=== PATIENT | male | born 1990 | race Caucasian/White ===

== ENCOUNTER 2019-02-12 15:37 | Emergency (ER) | payer SELFPAY ==
[2019-02-12 16:50] VITALS: BP 104/68
--- NOTE | 2019-02-12 17:23 | UC ---
Lower Extremity/Ankle HPI - HPI Summary HPI Summary: 28 year old male with no PMH presents with left psterior calf pain x 2 weeks. no swelling, no redness. patient woke up with pain, denies injury/ trauma. no prior occurence, no h/o blood clots/ bleeding disorders, no recent decreased movement, patient active. no SOB. no other complaints. pain worse with touch, movement, better with rest. tried ice and heat no coolness, numbness of leg/ foot - History of Current Complaint Chief Complaint: UCLowerExtremity Stated Complaint: LEFT LEG CALF PAIN X 2 WEEKS Time Seen by Provider: 02/12/19 16:55 Hx Obtained From: Patient Onset/Duration: Sudden Onset, Lasting Weeks - 2 Severity Initially: Mild Severity Currently: Mild Pain Intensity: 5 Pain Scale Used: 0-10 Numeric Aggravating Factor(s): Standing Alleviating Factor(s): Rest, Ice Able to Bear Weight: Yes - Allergies/Home Medications Allergies/Adverse Reactions: Allergies Allergy/AdvReac Type Severity Reaction Status Date / Time bee venom protein (honey bee) Allergy Severe Anaphylatic Verified 02/12/19 16:40 Shock cefaclor [From Ceclor] Allergy Severe Anaphylatic Verified 02/12/19 16:40 Shock latex Allergy Severe Airway Verified 02/12/19 16:40 Obstruction Penicillins Allergy Severe Airway Verified 02/12/19 16:40 Obstruction amoxicillin [From Augmentin] Allergy Unknown Hives Verified 02/12/19 16:40 clavulanic acid Allergy Unknown Hives Verified 02/12/19 16:40 [From Augmentin] SUPREX Allergy Intermediate Hives Uncoded 02/12/19 16:40 Home Medications: Home Medications Acetaminophen [Pain Relief Extra Strength] 1,000 mg PO PRN 02/12/19 [History] PMH/Surg Hx/FS Hx/Imm Hx Previously Healthy: Yes - Surgical History Surgical History: Yes Surgery Procedure, Year, and Place: EAR TUBES. [facility]. HERNIA REPAIR AGE 1 WEEKS - Family History Known Family History: Positive: Non-Contributory - Social History Occupation: Unemployed Alcohol Use: None Substance Use Type: Marijuana Substance Use Comment - Amount & Last Used: daily Smoking Status (MU): Former Smoker Amount Used/How Often: 1/2 can per day Review of Systems All Other Systems Reviewed And Are Negative: Yes Constitutional: Negative: Fever, Chills, Fatigue Skin: Negative: Rash Respiratory: Negative: Shortness Of Breath, Cough Musculoskeletal: Positive: Arthralgia, Myalgia. Negative: Decreased ROM, Edema Is Patient Immunocompromised?: No Physical Exam Triage Information Reviewed: Yes Appearance: Well-Appearing, No Pain Distress, Well-Nourished Vital Signs: Initial Vital Signs Temp 98.1 F 02/12/19 16:43 Pulse 83 02/12/19 16:43 Resp 18 02/12/19 16:43 BP 104/68 02/12/19 16:43 Pulse Ox 98 02/12/19 16:43 Eyes: Positive: Conjunctiva Clear ENT: Positive: Hearing grossly normal Musculoskeletal: Positive: Other: - TTP over gastronem. tendon origin without edema, swelling noted. pinoint area of tenderness measuring ~ 2cm x 2cm. no other tenderness, neg homans. + pain with PF, none with DF. TP 2+ b/l, SITLT. Neurological: Positive: Alert, Muscle Tone Normal Psychological Exam: Normal Skin Exam: Normal Skin: Positive: Other - n oopen wounds, sores, no erythema, no edema L LE. Lower Extremity Course/Dx - Course Course Of Treatment: Tendonitis, strain - If symptoms worsen, if you have swelling, increased pain, shortness of breath , or redness to calf, go to ER for evaluation of a blood clot - Naproxen 250mg twice daily x 5 days to decreased swelling, irritation - Follow up with orthopedics if no improvement within 1 week - rest, gentle stretching, ice, massage - Increase fluid intake - Differential Dx/Diagnosis Provider Diagnosis: Sprain and strain Discharge ED - Sign-Out/Discharge Documenting (check all that apply): Patient Departure All imaging exams completed and their final reports reviewed: No Studies - Discharge Plan Condition: Good Disposition: HOME Patient Education Materials: Muscle Strain (ED) Referrals: [facility] [Outside] No Primary Care Phys,NOPCP [Primary Care Provider] - Additional Instructions: - If symptoms worsen, if you have swelling, increased pain, shortness of breath , or redness to calf, go to ER for evaluation of a blood clot - Naproxen 250mg twice daily x 5 days to decreased swelling, irritation - Follow up with orthopedics if no improvement within 1 week - rest, gentle stretching, ice, massage - Increase fluid intake - Billing Disposition and Condition Condition: GOOD Disposition: Home - Attestation Statements Provider Attestation: This patient was not seen by me I was available for consult Chart reviewed [email or web address]
== END 2019-02-12 17:28 | disposition home or self-care (01) ==
LOC: UCCORT 15:37
DX: S86.812A Strain of other muscle(s) and tendon(s) at lower leg level, left leg, initial encounter (principal); M76.892 Other specified enthesopathies of left lower limb, excluding foot; Z91.030 Bee allergy status; Z88.1 Allergy status to other antibiotic agents; Z91.040 Latex allergy status; Z88.0 Allergy status to penicillin; Z91.09 Other allergy status, other than to drugs and biological substances; Z87.891 Personal history of nicotine dependence; X58.XXXA Exposure to other specified factors, initial encounter; Y92.9 Unspecified place or not applicable
CPT/HCPCS: 99211; G0463